=== PATIENT | male | born 1945 ===

== ENCOUNTER 2019-03-10 10:13 | Emergency (ER) | payer OTHER ==
[2019-03-10 10:21] VITALS: BMI 22.9
[2019-03-10] MEDS ORDERED: Iohexol 240 (50 ml) PO STA (11:29)
[2019-03-10] MEDS ORDERED: Iohexol 240 (50 ml) ONE (11:44)
[2019-03-10 11:52] LABS: BASO % 0.6 % (0.0-2.0); EOS # 0.2 K/uL (0.0-0.7); EOS % 4.9 % (0.0-4.0); LYMPH % 42.9 % (20.0-40.0); MEAN CORPUSCULAR HEMOGLOBIN 30.2 pg (27.0-31.0); MEAN CORPUSCULAR HGB CONC 33.9 g/dL (33.0-37.0); MEAN PLATELET VOLUME 8.4 fL (7.2-11.7); MONO # 0.5 K/uL (0.0-0.8); MONO % 10.4 % (0.0-10.0); NEUT # 1.9 K/uL (1.8-7.0); NEUT % 41.2 % (50.0-75.0); NRBC % 0.1 % (0.0-2.0); RBC 4.96 Mil/uL (4.40-5.90); WHITE BLOOD COUNT 4.7 K/uL (4.8-10.8)
[2019-03-10 12:02] LABS: URINE BILIRUBIN NEGATIVE (NEGATIVE); URINE BLOOD NEGATIVE (NEGATIVE); URINE CLARITY Clear (Clear); URINE COLOR Straw (YELLOW); URINE GLUCOSE (UA) NORMAL (Normal); URINE LEUKOCYTE ESTERASE NEG Leu/uL (Negative); URINE PROTEIN NEGATIVE (NEGATIVE); URINE UROBILINOGEN NORMAL mg/dL (0.2-1.0)
[2019-03-10 12:10] LABS: ALB/GLOB RATIO 1.2 (1.0-2.1); ALBUMIN 4.9 g/dL (3.5-5.0); ALT/SGPT 21 U/L (21-72); AST/SGOT 35 U/L (17-59); BLOOD UREA NITROGEN 19 mg/dL (9-20); GFR NON-AFRICAN AMERICAN > 60; LIPASE 81 U/L (23-300)
[2019-03-10] MEDS ORDERED: Iohexol 350mg/ml 100 ML ONE (12:28)
[2019-03-10 12:44] VITALS: RESP 20
--- NOTE | 2019-03-10 13:26 | C.PDOC ---
History Of Present Illness Patient is a 73 year old male, with a PMHx of colon CA and colectomy 4 to 5 months ago in the [place], who presents to the ED with his son for evaluation of mild intermittent RLQ pain with associated abdominal bloating. As per son, patient recently moved to the [place] and has had normal bowel movements, last one being 1 day ago. He denies any nausea, vomiting, diarrhea, constipation, GI bleed, dysuria, back pain, or fever. Time Seen by Provider: 03/10/19 10:35 Chief Complaint (Nursing): Abdominal Pain History Per: Patient History/Exam Limitations: no limitations Quality Of Discomfort: "Pain" Associated Symptoms: denies: Fever, Nausea, Vomiting, Diarrhea, Back Pain, Constipation Last Bowel Movement: Yesterday Recent travel outside of the [place]: No Additional History Per: Patient Past Medical History Reviewed: Historical Data, Nursing Documentation, Vital Signs Vital Signs: Last Vital Signs Temp 97.7 F 03/10/19 12:43 Pulse 68 03/10/19 12:43 Resp 20 03/10/19 12:43 BP 147/79 03/10/19 12:43 Pulse Ox 99 03/10/19 12:43 Primary Care Provider: FAMILY PROVIDER,NO - Medical History PMH: No Chronic Diseases Surgical History: No Surg Hx Family History: States: No Known Family Hx - Social History Hx Alcohol Use: No Hx Substance Use: No - Immunization History Hx Tetanus Toxoid Vaccination: No Hx Influenza Vaccination: No Hx Pneumococcal Vaccination: No Review Of Systems Except As Marked, All Systems Reviewed And Found Negative. Constitutional: Negative for: Fever, Weakness Eyes: Negative for: Pain ENT: Negative for: Ear Pain Cardiovascular: Negative for: Chest Pain, Palpitations Respiratory: Negative for: Cough, Shortness of Breath Gastrointestinal: Positive for: Abdominal Pain (RLQ with abdominal bloating). Negative for: Nausea, Vomiting, Diarrhea, Constipation, Hematochezia, Hematemesis Genitourinary: Negative for: Dysuria Musculoskeletal: Negative for: Neck Pain, Back Pain Skin: Negative for: Rash Neurological: Negative for: Weakness, Numbness Physical Exam - Physical Exam Appears: Non-toxic, No Acute Distress Skin: Warm, Dry, No Pale, No Rash Head: Atraumatic, Normacephalic Eye(s): bilateral: Normal Inspection Oral Mucosa: Moist Neck: Normal ROM, Supple Chest: Symmetrical, No Deformity Cardiovascular: Rhythm Regular, No Friction Rub, No Murmur Respiratory: Normal Breath Sounds, No Rales, No Rhonchi, No Wheezing Gastrointestinal/Abdominal: Bowel Sounds (active), Soft, Tenderness (mild RLQ ), No Guarding, No Rebound Back: No CVA Tenderness, No Vertebral Tenderness, No Paraspinal Tenderness Extremity: Normal ROM, No Swelling Neurological/Psych: Oriented x3, Normal Speech, Normal Motor, Normal Sensation Gait: Steady ED Course And Treatment - Laboratory Results Result Diagrams: 03/10/19 11:40 03/10/19 11:40 Lab Results: Total Bilirubin 0.9 mg/dL (0.2-1.3) 03/10/19 11:40 AST 35 U/L (17-59) 03/10/19 11:40 ALT 21 U/L (21-72) 03/10/19 11:40 Alkaline Phosphatase 102 U/L (38-126) 03/10/19 11:40 Total Protein 8.9 g/dL (6.3-8.3) H 03/10/19 11:40 Albumin 4.9 g/dL (3.5-5.0) 03/10/19 11:40 Globulin 4.0 gm/dL (2.2-3.9) H 03/10/19 11:40 Albumin/Globulin Ratio 1.2 (1.0-2.1) 03/10/19 11:40 Lipase 81 U/L (23-300) 03/10/19 11:40 Urine Color Straw (YELLOW) 03/10/19 11:40 Urine Clarity Clear (Clear) 03/10/19 11:40 Urine pH 9.0 (5.0-8.0) 03/10/19 11:40 Ur Specific [place] 1.006 (1.003-1.030) 03/10/19 11:40 Urine Protein Negative mg/dL (NEGATIVE) 03/10/19 11:40 Urine Glucose (UA) Normal mg/dL (Normal) 03/10/19 11:40 Urine Ketones Negative mg/dL (NEGATIVE) 03/10/19 11:40 Urine Blood Negative (NEGATIVE) 03/10/19 11:40 Urine Nitrate Negative (NEGATIVE) 03/10/19 11:40 Urine Bilirubin Negative (NEGATIVE) 03/10/19 11:40 Urine Urobilinogen Normal mg/dL (0.2-1.0) 03/10/19 11:40 Ur Leukocyte Esterase Neg Anjum/uL (Negative) 03/10/19 11:40 Urine RBC (Auto) 1 /hpf (0-3) 03/10/19 11:40 O2 Sat by Pulse Oximetry: 99 (on RA) Pulse Ox Interpretation: Normal - CT Scan/US CAT A&P Other Rad Studies (CT/US): Read By Radiologist, Radiology Report Reviewed CT/US Interpretation: Date of service: 03/10/2019. PROCEDURE: CT Abdomen and Pelvis with contrast. HISTORY: RLQ abd pain, hx of Colon Ca and colectomy. COMPARISON: None available. TECHNIQUE: CT scan of the abdomen and pelvis was performed after administration of intravenous contrast. Oral contrast was administered. Coronal and sagittal reformatted images were obtained. Contrast dose: 100 mL Omnipaque 350. Radiation dose: Total exam DLP = 197.95 mGy-cm. This CT exam was performed using one or more of the following dose reduction techniques: Automated exposure control, adjustment of the mA and/or kV according to patient size, and/or use of iterative reconstruction technique. FINDINGS: LOWER THORAX: The visualized lungs are clear. LIVER: Normal in size with homogeneous enhancement. Diffuse fatty liver. No gross lesion or ductal dilatation. GALLBLADDER AND BILE DUCTS: Well distended. No calcified gallstones, wall thickening or pericholecystic fluid. PANCREAS: Normal in size with homogeneous enhancement. No gross lesion or ductal dilatation. SPLEEN: Normal in size and appearance. ADRENALS: No discrete nodule. KIDNEYS AND URETERS: Normal in size with homogeneous enhancement. No hydronephrosis. There is a 5.6 x 4.9 cm lobular apparently septated cyst in the lower pole of the left kidney. VASCULATURE: No aortic aneurysm. There are no aortic atherosclerotic calcifications or mural plaque present. BOWEL: The stomach is distended and filled with oral contrast. The proximal small bowel loops are normal in caliber. There is apparent circumferential mural thickening in the distal small bowel loops in the right mid abdomen. There are postsurgical changes in the colon with the cecum apparently located in the left mid abdomen and there are also postsurgical changes of ileocolic anastomosis. No evidence for bowel dilatation or obstruction. There is appearance short segment circumferential mural thickening at the rectosigmoid junction. APPENDIX: Normal appendix. PERITONEUM: No free fluid. No free air. LYMPH NODES: No enlarged lymph nodes. BLADDER: Well distended and normal in appearance. REPRODUCTIVE: There is mild enlargement of the prostate gland. BONES: No acute fracture. There is diffuse bone demineralization and multilevel degenerative changes in the spine. OTHER FINDINGS: None. IMPRESSION: 1. Postsurgical changes in the colon and status post ileocolic anastomosis with the cecum apparently located in the left mid abdomen. Apparent mild circumferential mural thickening in the small bowel loops in the right mid abdomen is nonspecific and could be related to underdistention however acute nonspecific infectious/inflammatory enteritis is also a consideration. Clinical follow-up is advised. Apparent mild circumferential mural thickening at the rectosigmoid junction could be related to underdistention or peristalsis. 2. Large presumably septated cyst in the lower pole of the left kidney. Comparison with prior examination would be helpful to assess the stability of this finding, if no prior studies are available for comparison, follow-up ultrasound in 6-12 month interval is recommended to assess stability of this probably benign cyst. 3. Mild enlargement of the prostate gland. Please correlate with PSA levels. Medical Decision Making Medical Decision Making: Plan: CAT A&P Labs UA Toradol 30mg IVP Zofran 4mg IVP On re-exam, the patient reports improvement of symptoms. Lungs are CTA, heart is RRR, abdomen is soft, non-tender and the patient is tolerating PO well. Pt is ambulatory in the ED with steady gait. Disposition - Disposition Referrals: [facility] [Outside] Fabian Wiggins MD [Staff Provider] - Disposition: HOME/ ROUTINE Disposition Time: 15:09 Condition: GOOD Additional Instructions: Follow up with the medical doctor within 1-2 days. Return if worsened. Prescriptions: Acetaminophen [Tylenol] 325 mg PO Q6 PRN #30 tab PRN Reason: pain Ciprofloxacin [Cipro] 1 tab PO BID #14 tab Famotidine [Pepcid] 20 mg PO BID #20 tab metroNIDAZOLE [Flagyl] 500 mg PO BID #14 tab Instructions: Stomach Ache and Stomach Upset Forms: [facility] (Croatian) Print Language: ARGENTINE - Clinical Impression Clinical Impression: Abdominal pain - PA / JIGGER ARTISAN / Resident Statement MD/DO has reviewed & agrees with the documentation as recorded. - Scribe Statement The provider has reviewed the documentation as recorded by the González Da Silva All medical record entries made by the González were at my direction and personally dictated by me. I have reviewed the chart and agree that the record accurately reflects my personal performance of the history, physical exam, medical decision making, and the department course for this patient. I have also personally directed, reviewed, and agree with the discharge instructions and disposition.
--- NOTE | 2019-03-10 13:56 | CT ---
Date of service: 03/10/2019 PROCEDURE: CT Abdomen and Pelvis with contrast HISTORY: RLQ abd pain, hx of Colon Ca and colectomy COMPARISON: None available. TECHNIQUE: CT scan of the abdomen and pelvis was performed after administration of intravenous contrast. Oral contrast was administered. Coronal and sagittal reformatted images were obtained. Contrast dose: 100 mL Omnipaque 350 Radiation dose: Total exam DLP = 197.95 mGy-cm. This CT exam was performed using one or more of the following dose reduction techniques: Automated exposure control, adjustment of the mA and/or kV according to patient size, and/or use of iterative reconstruction technique. FINDINGS: LOWER THORAX: The visualized lungs are clear. LIVER: Normal in size with homogeneous enhancement. Diffuse fatty liver. No gross lesion or ductal dilatation. GALLBLADDER AND BILE DUCTS: Well distended. No calcified gallstones, wall thickening or pericholecystic fluid. PANCREAS: Normal in size with homogeneous enhancement. No gross lesion or ductal dilatation. SPLEEN: Normal in size and appearance. ADRENALS: No discrete nodule. KIDNEYS AND URETERS: Normal in size with homogeneous enhancement. No hydronephrosis. There is a 5.6 x 4.9 cm lobular apparently septated cyst in the lower pole of the left kidney. VASCULATURE: No aortic aneurysm. There are no aortic atherosclerotic calcifications or mural plaque present. BOWEL: The stomach is distended and filled with oral contrast. The proximal small bowel loops are normal in caliber. There is apparent circumferential mural thickening in the distal small bowel loops in the right mid abdomen. There are postsurgical changes in the colon with the cecum apparently located in the left mid abdomen and there are also postsurgical changes of ileocolic anastomosis. No evidence for bowel dilatation or obstruction. There is appearance short segment circumferential mural thickening at the rectosigmoid junction APPENDIX: Normal appendix. PERITONEUM: No free fluid. No free air. LYMPH NODES: No enlarged lymph nodes. BLADDER: Well distended and normal in appearance. REPRODUCTIVE: There is mild enlargement of the prostate gland. BONES: No acute fracture. There is diffuse bone demineralization and multilevel degenerative changes in the spine. OTHER FINDINGS: None. IMPRESSION: 1. Postsurgical changes in the colon and status post ileocolic anastomosis with the cecum apparently located in the left mid abdomen. Apparent mild circumferential mural thickening in the small bowel loops in the right mid abdomen is nonspecific and could be related to underdistention however acute nonspecific infectious/inflammatory enteritis is also a consideration. Clinical follow-up is advised. Apparent mild circumferential mural thickening at the rectosigmoid junction could be related to underdistention or peristalsis. 2. Large presumably septated cyst in the lower pole of the left kidney. Comparison with prior examination would be helpful to assess the stability of this finding, if no prior studies are available for comparison, follow-up ultrasound in 6-12 month interval is recommended to assess stability of this probably benign cyst. 3. Mild enlargement of the prostate gland. Please correlate with PSA levels.
[2019-03-10 15:33] VITALS: BP 124/70; PULSE 72; TEMP 98.2
[2019-03-12 15:31] VITALS: O2SAT 99
== END 2019-03-10 15:32 | disposition home or self-care (01) ==
LOC: C.ER 10:13
DX: R10.31 Right lower quadrant pain (principal); Z85.038 Personal history of other malignant neoplasm of large intestine
CPT/HCPCS: 74177; 80053; 81001; 83690; 85025; 96374; 99285; J1885; Q9966; Q9967